=== PATIENT | female | born 1980 | race African-American/Black ===

== ENCOUNTER 2018-03-03 16:26 | Inpatient (IN) | payer SELFPAY ==
[2018-03-03 16:47] LABS: URINE HCG POC HCG NEGATIVE (Negative)
[2018-03-03 16:53] LABS: BILIRUBIN,URINE NEGATIVE (NEG); CLARITY,URINE CLOUDY; COLOR,URINE YELLOW; GLUCOSE,URINE NEGATIVE (NEG); NITRITE,URINE POSITIVE (NEG); PROTEIN,URINE 100 mg/dL (NEG-TRACE)
[2018-03-03 17:01] LABS: BARBITURATES NEG (NEG); BENZODIAZEPINES NEG (NEG); CANNABINOIDS NEG (NEG); COCAINE NEG (NEG); METHADONE NEG (NEG); OPIATES NEG (NEG); PHENCYCLIDINE POS (NEG)
[2018-03-03 17:02] LABS: AMPHETAMINE/METHAMPHETAMINE NEG (NEG); ETHANOL, URINE NEG (NEG)
[2018-03-03 17:12] LABS: BACTERIA,URINE MANY /HPF (0-FEW); SQUAMOUS EPITHELIAL CELL,UR MANY /LPF; WBC,URINE >40 /HPF (0-4)
[2018-03-03 17:53] LABS: ADD MAN DIFF? NO
[2018-03-03 17:54] LABS: BASO # 0.1 x10^3/uL (0.0-0.2); BASO % 1 % (0-3); EOS # 0.2 x10^3/uL (0.0-0.7); EOS % 2 % (0-3); HEMATOCRIT 44.5 % (36.0-47.0); HEMOGLOBIN 14.7 g/dL (12.0-15.5); LYMPH # 2.9 x10^3/uL (1.0-4.8); LYMPH % 30 % (24-48); MEAN CORPUSCULAR HEMOGLOBIN 32 pg (25-35); MEAN CORPUSCULAR HGB CONC 33 g/dL (31-37); MEAN CORPUSCULAR VOLUME 98 fL (79-100); MONO # 0.9 x10^3/uL (0.0-1.1); MONO % 9 % (0-9); NEUT # 5.5 x10^3uL (1.8-7.7); NEUT % 58 % (31-73); PLATELET COUNT 252 x10^3/uL (140-400); RED BLOOD COUNT 4.57 x10^6/uL (3.50-5.40); RED CELL DISTRIBUTION WIDTH 13.7 % (11.5-14.5); WHITE BLOOD COUNT 9.6 x10^3/uL (4.0-11.0)
[2018-03-03 18:08] LABS: ANION GAP 9 (6-14); BLOOD UREA NITROGEN 13 mg/dL (7-20); CALCIUM 8.9 mg/dL (8.5-10.1); CARBON DIOXIDE 28 mmol/L (21-32); CHLORIDE 108 mmol/L (98-107); CREATININE 0.8 mg/dL (0.6-1.0); GFR 98.2; GLUCOSE 96 mg/dL (70-99); NEG OBC SER NEG; POS OBC SER POS; POTASSIUM 3.9 mmol/L (3.5-5.1); PREG TEST PT QUAL NEGATIVE (NEG); SODIUM 145 mmol/L (136-145)
[2018-03-03 18:11] LABS: ACETAMIN < 2.0 mcg/ml (10-30); ETHANOL < 10 mg/dL (0-10); SALIC 5.5 mg/dL (2.8-20.0)
[2018-03-03 18:13] LABS: ALBUMIN 3.4 g/dL (3.4-5.0); ALK PHOS 97 U/L (46-116); ALT (SGPT) 16 U/L (14-59); AST (SGOT) 20 U/L (15-37); DIRECT BILIRUBIN < 0.1 mg/dL (0.0-0.2); LIPASE 417 U/L (73-393); TOTAL BILIRUBIN 0.3 mg/dL (0.2-1.0); TOTAL PROTEIN 7.9 g/dL (6.4-8.2)
[2018-03-03] MEDS: IV NORMAL SALINE 1000ML BAG 1,000 ML IV (18:55)
[2018-03-04 05:15] LABS: ADD MAN DIFF? NO
[2018-03-04 05:29] LABS: BASO % 0 % (0-3); EOS # 0.2 x10^3/uL (0.0-0.7); EOS % 2 % (0-3); HEMATOCRIT 39.1 % (36.0-47.0); HEMOGLOBIN 12.9 g/dL (12.0-15.5); LYMPH # 3.2 x10^3/uL (1.0-4.8); LYMPH % 39 % (24-48); MEAN CORPUSCULAR HEMOGLOBIN 32 pg (25-35); MEAN CORPUSCULAR HGB CONC 33 g/dL (31-37); MEAN CORPUSCULAR VOLUME 97 fL (79-100); MONO # 0.7 x10^3/uL (0.0-1.1); MONO % 9 % (0-9); NEUT # 4.1 x10^3uL (1.8-7.7); NEUT % 50 % (31-73); PLATELET COUNT 225 x10^3/uL (140-400); RED BLOOD COUNT 4.02 x10^6/uL (3.50-5.40); RED CELL DISTRIBUTION WIDTH 13.8 % (11.5-14.5); WHITE BLOOD COUNT 8.2 x10^3/uL (4.0-11.0)
[2018-03-04 05:44] LABS: ANION GAP 7 (6-14); BLOOD UREA NITROGEN 13 mg/dL (7-20); CALCIUM 8.5 mg/dL (8.5-10.1); CARBON DIOXIDE 29 mmol/L (21-32); CHLORIDE 107 mmol/L (98-107); CREATININE 0.8 mg/dL (0.6-1.0); GFR 98.2; GLUCOSE 102 mg/dL (70-99); POTASSIUM 3.6 mmol/L (3.5-5.1); SODIUM 143 mmol/L (136-145)
[2018-03-04] MEDS: IV NORMAL SALINE 1000ML BAG 1,000 ML IV (05:51)
[2018-03-04] MEDS: LACTOBACILLUS RHAMNOSUS GG 1 CAPSULE. PO (09:12)
[2018-03-04] MEDS: ENOXAPARIN 40 MG/0.4 ML SYRINGE. SQ (09:13)
[2018-03-04] MEDS ORDERED: ACETAMINOPHEN 325 MG TABLET. PO (12:00)
== END 2018-03-04 14:02 | DRG 896 ==
LOC: ER 16:26 → 5 SOUTH 18:30
DX: F16.10 Hallucinogen abuse, uncomplicated (principal); G92 Toxic encephalopathy; R45.851 Suicidal ideations; E66.01 Morbid (severe) obesity due to excess calories; N39.0 Urinary tract infection, site not specified; Z68.42 Body mass index [BMI] 45.0-49.9, adult; F32.9 Major depressive disorder, single episode, unspecified; T50.905A Adverse effect of unspecified drugs, medicaments and biological substances, initial encounter; Y92.89 Other specified places as the place of occurrence of the external cause; Z98.51 Tubal ligation status; Z88.0 Allergy status to penicillin
CPT/HCPCS: 36415; 80048; 80076; 80307; 80329; 81001; 81025; 83690; 84703; 85025; 87086; 87186; 96374; 99285; 99285-25; G0480; J1650; J1956; J7030

== ENCOUNTER 2018-04-03 12:44 | Emergency (ER) | payer SELFPAY ==
[2018-04-03 13:40] LABS: URINE HCG POC HCG NEGATIVE (Negative)
[2018-04-03 14:05] LABS: BARBITURATES NEG (NEG); BENZODIAZEPINES NEG (NEG); BILIRUBIN,URINE NEGATIVE (NEG); CANNABINOIDS POS (NEG); CLARITY,URINE CLEAR; COCAINE NEG (NEG); COLOR,URINE YELLOW; GLUCOSE,URINE NEGATIVE (NEG); METHADONE NEG (NEG); NITRITE,URINE NEGATIVE (NEG); OPIATES NEG (NEG); PH,URINE 7.5; PHENCYCLIDINE POS (NEG); PROTEIN,URINE NEGATIVE (NEG-TRACE)
[2018-04-03 14:06] LABS: AMPHETAMINE/METHAMPHETAMINE NEG (NEG); ETHANOL, URINE NEG (NEG)
[2018-04-03 14:11] LABS: ADD MAN DIFF? NO
[2018-04-03 14:15] LABS: BASO # 0.1 x10^3/uL (0.0-0.2); BASO % 1 % (0-3); EOS # 0.2 x10^3/uL (0.0-0.7); EOS % 3 % (0-3); HEMATOCRIT 41.7 % (36.0-47.0); HEMOGLOBIN 13.9 g/dL (12.0-15.5); LYMPH # 2.5 x10^3/uL (1.0-4.8); LYMPH % 34 % (24-48); MEAN CORPUSCULAR HEMOGLOBIN 33 pg (25-35); MEAN CORPUSCULAR HGB CONC 33 g/dL (31-37); MEAN CORPUSCULAR VOLUME 98 fL (79-100); MONO # 0.7 x10^3/uL (0.0-1.1); MONO % 10 % (0-9); NEUT # 3.9 x10^3uL (1.8-7.7); NEUT % 53 % (31-73); PLATELET COUNT 232 x10^3/uL (140-400); RED BLOOD COUNT 4.24 x10^6/uL (3.50-5.40); RED CELL DISTRIBUTION WIDTH 13.6 % (11.5-14.5); WHITE BLOOD COUNT 7.4 x10^3/uL (4.0-11.0)
[2018-04-03 14:22] LABS: BACTERIA,URINE FEW /HPF (0-FEW); SQUAMOUS EPITHELIAL CELL,UR MOD /LPF
[2018-04-03 14:25] LABS: ANION GAP 6 (6-14); BLOOD UREA NITROGEN 12 mg/dL (7-20); BUN/CREATININE RATIO 15 (6-20); CALCIUM 8.8 mg/dL (8.5-10.1); CARBON DIOXIDE 29 mmol/L (21-32); CHLORIDE 109 mmol/L (98-107); CREATININE 0.8 mg/dL (0.6-1.0); GFR 98.2; GLUCOSE 91 mg/dL (70-99); POTASSIUM 3.9 mmol/L (3.5-5.1); SODIUM 144 mmol/L (136-145)
[2018-04-03 14:29] LABS: ACETAMIN < 2 mcg/ml (10-30)
[2018-04-03 14:31] LABS: ALBUMIN 3.3 g/dL (3.4-5.0); ALBUMIN/GLOBULIN RATIO 0.8 (1.0-1.7); ALK PHOS 88 U/L (46-116); ALT (SGPT) 13 U/L (14-59); AST (SGOT) 13 U/L (15-37); TOTAL BILIRUBIN 0.2 mg/dL (0.2-1.0); TOTAL PROTEIN 7.3 g/dL (6.4-8.2)
== END 2018-04-03 16:02 | disposition home or self-care (01) ==
LOC: ER 12:44
DX: F32.9 Major depressive disorder, single episode, unspecified (principal); F16.10 Hallucinogen abuse, uncomplicated; Z88.0 Allergy status to penicillin; Z98.51 Tubal ligation status
CPT/HCPCS: 36415; 80053; 80307; 81001; 81025; 84443; 85025; 87086; 99284

== ENCOUNTER 2020-05-15 01:23 | Emergency (ER) | payer MEDICAID ==
[~2020-05-15] VITALS: Ht 165.1 cm; Wt 150.0 kg
[~2020-05-15 01:23] MED LIST: LEVO250T25 PO
[2020-05-15] MEDS ORDERED: NAPR-683 PO (02:54)
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
[2020-05-15 02:58] VITALS: BP 170/86
--- NOTE | 2020-05-15 05:47 | RAD ---
EXAM: RIGHT TIBIA/FIBULA 2 VIEWS. HISTORY: Leg pain, fracture fixation. COMPARISON: None. FINDINGS: There are changes of internal fixation of a tibial diaphyseal fracture with an antegrade intramedullary nail fixed proximally and distally by 2 screws. There is hypertrophic callus, but a residual open fracture line is suspected anteriorly. There is a chronic healed fracture of the distal fibular diaphysis. And ossicle at the tip of the medial malleolus is consistent with a chronic ligamentous injury. There is a moderate plantar calcaneal spur. IMPRESSION: 1. Suspect incompletely union of the tibial diaphyseal fracture. Ongoing follow-up is recommended. Electronically signed by: Lamont Schaffer MD (05/15/2020 5:44 AM) [facility]
== END 2020-05-15 03:02 | disposition home or self-care (01) ==
LOC: ER 01:23
DX: M79.661 Pain in right lower leg (principal); F32.9 Major depressive disorder, single episode, unspecified; F17.200 Nicotine dependence, unspecified, uncomplicated; F19.90 Other psychoactive substance use, unspecified, uncomplicated; G89.29 Other chronic pain; Z98.890 Other specified postprocedural states; Z98.51 Tubal ligation status; Z88.0 Allergy status to penicillin
CPT/HCPCS: 73590; 99284

== ENCOUNTER 2020-07-11 01:54 | Emergency (ER) | payer MEDICAID ==
[~2020-07-11] VITALS: Ht 172.7 cm; Wt 150.0 kg
[~2020-07-11 01:54] MED LIST changes: +NAPR-683 PO
[2020-07-11] MEDS ORDERED: DOXY100T PO (02:56)
[2020-07-11] MEDS ORDERED: SULF1TAB24 PO (02:56)
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
[2020-07-11 03:17] VITALS: BP 161/107
== END 2020-07-11 03:20 | disposition home or self-care (01) ==
LOC: ER 01:54
DX: L03.115 Cellulitis of right lower limb (principal); I10 Essential (primary) hypertension; F17.200 Nicotine dependence, unspecified, uncomplicated; Z88.0 Allergy status to penicillin
CPT/HCPCS: 99283